=== PATIENT | male | born 1955 | race Caucasian/White ===

== ENCOUNTER 2016-12-01 11:14 | Inpatient (IN) | payer OTHER ==
[2016-11-15 12:54] VITALS: BMI 29.0
--- NOTE | 2016-11-15 13:32 | PAT Medication Instructions ---
Service Date Nov 15, 2016. Current Home Medication List Bupropion (Wellbutrin Sr), 150 MG PO BID Cetirizine (Zyrtec), 10 MG PO QAM Hydroxyzine Pamoate (Vistaril), 1 CAP PO TID Lorazepam (Ativan), 1 MG PO HS Lorazepam (Lorazepam), 1 MG PO Q6H PRN for Anxiety Sertraline (Zoloft), 1 TAB PO QAM Trazodone Hcl (Trazodone), 50 MG PO HS Medication Instructions For Your Scheduled Surgery - Hold the following medications the morning of surgery: Hydroxyzine Pamoate (Vistaril), 1 CAP PO TID Cetirizine (Zyrtec), 10 MG PO QAM - Take the following medications the morning of surgery with a sip of water OTHERWISE NOTHING TO EAT OR DRINK AFTER MIDNIGHT: Sertraline (Zoloft), 1 TAB PO QAM Bupropion (Wellbutrin Sr), 150 MG PO BID Lorazepam (Lorazepam), 1 MG PO Q6H PRN for Anxiety - Take the following medications as scheduled the night before surgery: Lorazepam (Ativan), 1 MG PO HS Trazodone Hcl (Trazodone), 50 MG PO HS Bupropion (Wellbutrin Sr), 150 MG PO BID Lorazepam (Lorazepam), 1 MG PO Q6H PRN for Anxiety Hydroxyzine Pamoate (Vistaril), 1 CAP PO TID If you have any questions please call us at [phone] or [phone] or [phone]
[2016-11-15 13:59] LABS: HEMATOCRIT 45.7 % (42-52); MEAN CELL VOLUME 87.7 fL (80-100); MEAN CORPUSCULAR HEMOGLOBIN 29.2 pg (25-34); MEAN CORPUSCULAR HGB CONC 33.3 g/dl (32-36); MEAN PLATELET VOLUME 10.7 fL (7.4-10.4); PLATELET COUNT 318 K/uL (130-400); RED BLOOD COUNT 5.21 M/uL (4.7-6.1); WHITE BLOOD COUNT 11.05 K/uL (4.8-10.8)
--- NOTE | 2016-11-15 14:04 | DIAGNOSTIC IMAGING REPORT ---
CHEST 2 VIEWS ROUTINE HISTORY: Preop. COMPARISON: Chest 06/12/2015. FINDINGS: No focal lung consolidations to suggest pneumonia. No evidence for pulmonary edema. 4 mm nodular density within the right lung apex favors a calcified granuloma. This remains unchanged. The heart is normal in size. No pleural effusions. No pneumothorax. IMPRESSION: No acute process. Electronically signed by: Modesto Kolb M.D. 11/15/2016 2:03 PM Dictated Date/Time: 11/15/2016 2:01 PM
[2016-11-15 14:16] LABS: BUN/CREATININE RATIO 14.8 (10-20); CALCIUM 8.9 mg/dl (8.5-10.1); CREATININE 0.98 mg/dl (0.60-1.40); POTASSIUM 4.1 mmol/L (3.5-5.1)
[2016-11-15 15:07] LABS: BASO % 0.5 %; BASO ABS # 0.05 K/uL (0-0.2); COMPLETE YES; EOS % 4.6 %; LYMPH ABS # 2.65 K/uL (1.2-3.4); MONO % 9.5 %; NEUT % 60.4 %
[~2016-12-01] VITALS: Ht 172.7 cm; Wt 87.9 kg
[2016-12-01] VITALS (7 sets, daily range): BP systolic 94–139; BP diastolic 59–83; PULSE 69–103; TEMP 36.6–36.9; O2SAT 92–97; Ht 172.7 cm; Wt 87.9 kg
[~2016-12-01 11:14] MED LIST: ATV1 PO; BUPR-79 PO; CEFAZOLIN 2000 MG/60 ML D5W IV SCH; CETI10TA84 PO; HYDR50CA2 PO; LACTATED RINGER'S 1000ML 1,000 ML IV SCH; LORA-741 PO; SERT50TA PO; TRAZ50TA35 PO
[2016-12-01] MEDS ORDERED: EpHEDrine SULFATE INJ 50 MG/ML AMP IV PRN (11:30)
[2016-12-01] MEDS ORDERED: HYDROmorphone INJ 1 MG/ML SYR IV PRN (11:30)
[2016-12-01] MEDS ORDERED: LABETALOL HCL IV 5 MG/ML 20ML IV PRN (11:30)
[2016-12-01] MEDS ORDERED: MEPERIDINE HCL 25 MG/ML CARP IV PRN (11:30)
[2016-12-01] MEDS ORDERED: FENTANYL CITRATE INJ 50 MCG/1 ML 2 ML VIAL IV PRN (11:30)
[2016-12-01] MEDS ORDERED: ONDANSETRON INJ 2 MG/ML 2 ML VIAL IV PRN ×2 (11:30→16:30)
[2016-12-01] MEDS ORDERED: ATROPINE SULFATE 0.1 MG/ML 5ML SYR IV PRN (11:30)
[2016-12-01] MEDS ORDERED: GLYCOPYRROLATE INJ 0.2 MG/ML VIAL ONE ×2 (11:37→14:21)
[2016-12-01] MEDS ORDERED: LIDOCAINE HCL 2% 2 ML VIAL (20MG/ML) ONE (11:37)
[2016-12-01] MEDS ORDERED: ROCURONIUM BROMIDE 10 MG/ML 5 ML VIAL IV ONE (11:37)
[2016-12-01] MEDS ORDERED: ONDANSETRON INJ 2 MG/ML 2 ML VIAL ONE (11:37)
[2016-12-01] MEDS ORDERED: DEXAMETHASONE SOD INJ 4 MG/ML VIAL ONE (11:37)
[2016-12-01] MEDS ORDERED: FENTANYL CITRATE INJ 50 MCG/1 ML 2 ML VIAL ONE ×2 (11:37→16:00)
[2016-12-01] MEDS ORDERED: PROPOFOL IV EMULSION 10 MG/ML 20 ML VIAL IV ONE (11:37)
[2016-12-01] MEDS ORDERED: MIDAZOLAM HCL 1 MG/ML 2ML VIAL ONE (11:37)
[2016-12-01] MEDS ORDERED: NEOSTIGMINE METHYLSULFATE 1 MG/ML 10ML VIAL ONE (11:37)
[2016-12-01] MEDS ORDERED: EpHEDrine SULFATE 50MG/5ML SYR ONE ×2 (11:48→14:00)
--- NOTE | 2016-12-01 13:01 | History & Physical Bridge Note ---
H&P Re-Evaluation Bridge Note: I have examined the patient, reviewed the History & Physical and in the interval since the performance of the History & Physical I have noted the following changes of clinical significance: No changes noted
--- NOTE | 2016-12-01 13:02 | History and Physical ---
History & Physical Date Dec 01, 2016. Chief Complaint Back and leg pain History of Present Illness The patient is a 61 year old male with complaints of back and leg pain Past Medical/Surgical History Medical Problems: (1) Lumbar stenosis with neurogenic claudication Additional History Hepatic Disease: No Endocrine Disorder: No Kidney Disease: No Hypertension: No Heart Disease: No Bleeding Tendencies: No Infectious Diseases: No Allergies Coded Allergies: Gabapentin (Verified Allergy, Unknown, rash, 12/01/16) Latex1 -Allergic Contact Dermititis (Verified Allergy, Unknown, , ) Paroxetine (Unverified Allergy, Unknown, RASH, 12/01/16) PER RECORDS Home Medications Scheduled Bupropion (Wellbutrin Sr), 150 MG PO BID Cetirizine (Zyrtec), 10 MG PO QAM Hydroxyzine Pamoate (Vistaril), 1 CAP PO TID Sertraline (Zoloft), 1 TAB PO QAM Trazodone Hcl (Trazodone), 50 MG PO HS Scheduled PRN Lorazepam (Ativan), 1 MG PO HS PRN for Sleep Lorazepam (Lorazepam), 1 MG PO Q6H PRN for Anxiety Physical Examination Skin: warm/dry, no rash Eyes: normal inspection, EOMI, sclerae normal ENT: normal ENT inspection, pharynx normal Head: normocephalic, atraumatic Neck: supple, no adenopathy, trachea midline Respiratory/Chest: lungs clear, normal breath sounds, no respiratory distress Cardiovascular: regular rate, rhythm, no edema, no murmur Abdomen / GI: normal bowel sounds, non tender Back: normal inspection Extremities: normal inspection, normal range of motion Neurologic/Psych: no motor/sensory deficits, alert, normal reflexes, oriented x 3 Diagnosis Lumbar spinal stenosis Plan of Treatment Lumbar decompression fusion L3 4 L5-S1 with removal of instrumentation L4 5
[2016-12-01] MEDS ORDERED: BUPIVACAINE/EPINEPHRINE 0.5% MPF 1:200,000 30 ML VIAL ONE (13:25)
[2016-12-01] MEDS ORDERED: BACITRACIN 50000 UNIT VIAL ONE (13:25)
[2016-12-01] MEDS ORDERED: PHENYLEPHRINE 100MCG/ML 5ML SYR ONE (14:00)
[2016-12-01] MEDS ORDERED: ALBUMIN HUMAN 5% 12.5 GM/250 ML VIAL IV ONE (15:23)
[2016-12-01] MEDS ORDERED: FLOSEAL HEMOSTATIC MATRIX 10ML TOP ONE (16:10)
--- NOTE | 2016-12-01 16:15 | DIAGNOSTIC IMAGING REPORT ---
INTRAOPERATIVE RADIOGRAPHS CLINICAL HISTORY: L3-S1 spinal fusion. Fluoroscopy time: 13 seconds. FINDINGS: 2 spot fluoroscopic views of the lumbar spine are presented. There is evidence of discectomy at L3-L4, L4-L5, and L5-S1. There has been laminectomy and posterior fusion from L3 -S1. Interpedicular screws are present at all levels. Orthopedic hardware appears intact. IMPRESSION: Intraoperative images from L3 -S1 spinal fusion as above. Electronically signed by: Salvador Gómez M.D. 12/01/2016 4:14 PM Dictated Date/Time: 12/01/2016 4:13 PM
[2016-12-01] MEDS ORDERED: SODIUM CHLORIDE 0.9% 1000ML 1,000 ML IV SCH (16:19)
--- NOTE | 2016-12-01 16:26 | [facility] Operative Report ---
Operative Report Operative Date Dec 01, 2016. Pre-Operative Diagnosis Lumbar spinal stenosis Post-Operative Diagnosis Lumbar spinal stenosis Procedure(s) Performed Her 1 removal of posterior instrumentation L4 5. #2 expiration of fusion L4 5. #3 lumbar decompression medial facetectomies foraminotomies L3 4 L5-S1. #4 posterior spinal fusion L3 4 L5-S1. #5 placement posterior segmental instrumentation L3 to S1. #6 interbody fusion L3 4 L5-S1 #7 placement peek Cage 14 x 26 mm L34 and 12 x 26 mm at L5-S1. #8 placement of locally harvested morcellized autograft and posterior gutters. #9 placement infuse collagen sponge combined Master graft locally harvested morcellized autograft in the posterior lateral gutters and ostial amp in the interbody space. Surgeon Dr. Chente Diamond Locker Room Attendant Surgeon(s) None Estimated Blood Loss 450 ML Findings Severe spinal stenosis Specimens Explanted Hardware L4-L5 Patient desires to keep explanted hardware. Appropriate form filled out and stayed with explants. Explants cleaned and sterilized in OR per policy. Dr. Diamond specified that the explanted hardware was not related to a failed device. Description of Procedure Patient was met with preoperatively case discussed all questions were addressed. After informed consent obtained patient was taken to the operative suite underwent intubation placed in a prone position on the Melo table on top Gregorio frame. All bony prominences well-padded eyes inspected to ensure there is no external pressure placed upon them. This point lumbar spines prepped and draped in the normal sterile fashion. Sharp dissection with the assistance of Bovie cautery was performed onto an exposing the lamina and transverse processes of L3 and L5 in the instrumentation at L5 4 5. Then proceeded remove the hardware at L4 5 bilaterally explored the fusion mass noting it to be intact. Then performed a complete laminectomy including medial facetectomies foraminotomies L5-S1 followed by L3 4. After dressing stenosis pedicle screws were placed in L3 L4-L5 and the S1 levels bilaterally with assistance of fluoroscopy and the probably size vahe placed. Through a transforaminal approach on the left we discectomy of L5-S1 was performed and plate created to subcortical bleeding bone and a 12 x 26 mm peek cage filled with ostial amp tapped in position. Then proceeded L3 40 again through a transforaminal approach on the left we discectomy performed and plate created to subcortical bleeding bone and a 14 x 26 mm peek cage filled with ostial amp tapped into position. Brought to then locked and final position bilaterally. The transverse processes of L3 L4-L5 and sacral alar burred to subcortical bleeding bone. Infuse calm sponge mask graft locally harvested morcellized R graft was placed in the posterior lateral gutters. 15 round JESSICA drain inserted. Incision was then closed with 1 Vicryl in the fascia 2-0 Vicryl subcutaneous tediously 4 Monocryl for Elisabeth closure Steri-Strips sterile dressings placed. Patient we can take PACU stable condition. I attest to the content of the Intraoperative Record and any orders documented therein. Any exceptions are noted below.
[2016-12-01] MEDS ORDERED: DO NOT ADMINISTER PNEUMOCOCCAL VACCINE PRN ×2 (16:30)
[2016-12-01] MEDS ORDERED: DO NOT ADMINISTER FLU VACCINE PRN ×3 (16:30)
[2016-12-01] MEDS ORDERED: METOCLOPRAMIDE HCL INJ 5 MG/ML 2 ML VIAL IV PRN (16:30)
[2016-12-01] MEDS ORDERED: LORAZEPAM INJ 0.5 MG in SYRINGE 0.75 ML IV PRN (16:30)
[2016-12-01] MEDS ORDERED: NALOXONE HCL 0.4 MG/1 ML VIAL/CARP IV PRN ×2 (16:30)
[2016-12-01] MEDS ORDERED: SOD PHOSPHATE/SOD BIPHOSPHATE ENEMA 132 ML BTL PR PRN (16:30)
[2016-12-01] MEDS ORDERED: FAMOTIDINE 20 MG TAB PO PRN (16:30)
[2016-12-01] MEDS ORDERED: ACETAMINOPHEN IV 100 ML IV PRN (16:30)
[2016-12-01] MEDS ORDERED: MAGNESIUM HYDROXIDE SUSP 30 ML UDC PO PRN (16:30)
[2016-12-01] MEDS ORDERED: ACETAMINOPHEN 500 MG TAB PO PRN (16:30)
[2016-12-01] MEDS ORDERED: PROMETHAZINE HCL INJ 12.5 MG in SODIUM CHLORIDE 0.9% 50ML 50 ML IV PRN (16:30)
[2016-12-01] MEDS ORDERED: ALUMINUM/MAGNESIUM SUSP 30 ML UDC PO PRN (16:30)
[2016-12-01] MEDS ORDERED: hydrOXYzine HCL 25 MG TAB PO PRN (16:30)
[2016-12-01] MEDS ORDERED: BISACODYL 10 MG SUPP PR PRN (16:30)
[2016-12-01] MEDS ORDERED: HYDROmorphone HCL 0.5MG/ML 50 ML CASSETTE ONE (16:33)
--- NOTE | 2016-12-01 17:30 | Anesthesiology Progress Note ---
Anesthesia Post Op Note Date & Time Dec 01, 2016 at 17:29 Vital Signs Pain Intensity: 0 Vital Signs Past 12 Hours Date Time Temp Pulse Resp B/P (MAP) Pulse Ox O2 Delivery O2 Flow Rate FiO2 12/01/16 17:05 93 16 109/60 95 Nasal Cannula 4 12/01/16 16:55 93 16 115/64 97 Nasal Cannula 4 12/01/16 16:45 99 16 116/59 97 Oxymask 10 12/01/16 16:36 99 16 109/66 97 Oxymask 10 12/01/16 16:28 36.6 104 18 111/80 97 Oxymask 10 12/01/16 11:40 36.8 84 18 139/83 97 Room Air Notes Mental Status: alert / awake / arousable, participated in evaluation Pt Amnestic to Procedure: Yes Nausea / Vomiting: adequately controlled Pain: adequately controlled Airway Patency, RR, SpO2: stable & adequate BP & HR: stable & adequate Hydration State: stable & adequate Anesthetic Complications: no major complications apparent
[2016-12-01] MEDS: HYDROmorphone HCL 0.5MG/ML 50 ML CASSETTE IV PRN ×2 (17:34→19:12)
[2016-12-01] MEDS: LACTATED RINGER'S 1000ML 1,000 ML IV SCH (18:21)
[2016-12-01] MEDS: TRAZODONE HCL 50 MG TAB PO SCH (21:00)
[2016-12-01] MEDS: CEFAZOLIN IV 2,000 MG in SYRINGE 0 ML IV SCH (21:45)
[2016-12-01] MEDS: DEXAMETHASONE INJ 6 MG in SYRINGE 0 ML IV SCH (21:47)
[2016-12-01] MEDS: DOCUSATE SODIUM/SENNA 50/8.6MG TAB PO SCH (21:49)
[2016-12-01] MEDS: hydrOXYzine HCL 25 MG TAB PO SCH (21:49)
[2016-12-01] MEDS: BuPROPion SR 150 MG TABCR PO SCH (21:49)
[2016-12-02] MEDS: LACTATED RINGER'S 1000ML 1,000 ML IV SCH (00:25)
[2016-12-02 03:34] VITALS: BP 116/74; PULSE 73; TEMP 36.9; O2SAT 92
[2016-12-02 05:41] LABS: HEMATOCRIT 34.6 % (42-52); MEAN CELL VOLUME 86.1 fL (80-100); MEAN CORPUSCULAR HEMOGLOBIN 28.6 pg (25-34); MEAN CORPUSCULAR HGB CONC 33.2 g/dl (32-36); MEAN PLATELET VOLUME 9.8 fL (7.4-10.4); PLATELET COUNT 249 K/uL (130-400); RED BLOOD COUNT 4.02 M/uL (4.7-6.1); WHITE BLOOD COUNT 15.18 K/uL (4.8-10.8)
[2016-12-02] MEDS ORDERED: DC PCA ONE (06:00)
[2016-12-02] MEDS ORDERED: HYDROmorphone INJ 0.5 MG/0.5 ML SYR IV PRN (06:01)
[2016-12-02] MEDS ORDERED: HYDROmorphone INJ 1 MG/ML SYR IV PRN ×2 (06:01)
[2016-12-02] MEDS: CEFAZOLIN IV 2,000 MG in SYRINGE 0 ML IV SCH (06:13)
[2016-12-02] MEDS: DEXAMETHASONE INJ 6 MG in SYRINGE 0 ML IV SCH ×2 (06:13→14:00)
[2016-12-02 06:14] LABS: BUN/CREATININE RATIO 14.5 (10-20); CALCIUM 7.8 mg/dl (8.5-10.1); CREATININE 1.28 mg/dl (0.60-1.40); POTASSIUM 4.4 mmol/L (3.5-5.1)
[2016-12-02 06:21] LABS: BASO % 0.1 %; BASO ABS # 0.01 K/uL (0-0.2); COMPLETE YES; IG% 0.6 %; LYMPH % 5.9 %; LYMPH ABS # 0.89 K/uL (1.2-3.4); MONO % 4.9 %; NEUT % 88.5 %
[2016-12-02] MEDS ORDERED: NURSING DECISION MEDICATION ORDER SCH (06:45)
[2016-12-02 07:34] VITALS: BP 95/61; PULSE 82; TEMP 36.8; O2SAT 92
[2016-12-02] MEDS ORDERED: RXC5 PO (07:50)
--- NOTE | 2016-12-02 07:51 | Discharge Instructions ---
Discharge Instructions Date of Service Dec 02, 2016. Admission Reason for Admission: Spinal Stenosis Discharge Discharge Diagnosis / Problem: lumbar stenosis Discharge Goals Goal(s): Improve function Activity Recommendations Activity Limitations: per Instructions/Follow-up section . Instructions / Follow-Up Instructions / Follow-Up ACTIVITY RECOMMENDATIONS: SELF CARE INSTRUCTIONS AFTER THORACIC/LUMBAR FUSIONS 1. You may walk to your tolerance. It is good exercise for your legs and back. Expect some back and intermittent leg aches and pains. 2. You may perform "counter-top" level activities (make a sandwich, afua with a project, etc.). 3. No bending or lifting of more than 10 pounds or back twisting of any nature (roll like a log when turning in bed). 4. You may ride in a car for 20-30 minutes at a time. No driving until after your first visit with your doctor. 5. Frequent changes of position and restricting sitting to 30 minutes at a time will help limit the amount of back spasms and stiffness you may experience. 6. You may discontinue the use of ambulatory aids (cane, crutches, etc.) once your strength and confidence allow. 7. You may bench inspector the shower and let water strike your incision when you arrive home at least once daily. Do not take a tub bath, sit in a hot tub or go into a swimming pool until after your first recheck in the office. SPECIAL CARE INSTRUCTIONS: VERY IMPORTANT TO READ AND REVIEW A. Your surgical incision has been closed with a cosmetic suture under the skin that will dissolve in about 6 weeks. In 14 days, you can use a pair of clean scissors and cut the suture that is left outside of the skin at the ends of your incision. 1. The small skin tapes can be removed 7 days after surgery if they have not fallen off by that point. 2. You may keep the wound open to air as much as possible to promote healing after post-op day number 5 unless told otherwise by your doctor. 3. If you think the wound looks like it is becoming infected (redness or worsening drainage) and/or you are experiencing fever, chill or worsening back pain and muscle spasms, contact the office so that we may evaluate you as soon as possible. B. Complications are uncommon, but please contact us if you have any signs or symptoms of: 1. wound infection (fever higher than 102.5 degrees F, redness, separation of wound, drainage, or increasing pain from the incision) 2. blood clots in legs (pain, swelling, redness and warmth in legs) 3. urinary tract infection (fever higher than 102.5 degrees F, burning upon urination or increased frequency of urination) 4. nerve problems (inability to walk on your toes or heels, numbness, loss of bowel or bladder control) 5. any other symptoms that concern you C. Please call the office at if you have any concerns or questions about your operation or recovery. D. No smoking! Smoking drastically decreases the chance of a solid fusion. E. Do not take any anti-inflammatory medications (Indocin, Advil, Motrin, Aspirin, Naprosyn, etc.) as these may inhibit the chance of a solid fusion. Tylenol is okay to take for pain. MANAGING PAIN AFTER SPINAL SURGERY 1. Narcotic medication is intended for short-term use and will be provided for surgical pain. Surgical pain usually lasts for a period of 4-6 weeks. Narcotic medication includes Percocet, Vicodin, Darvocet, Tylenol #3 or Lortab. 2. Longer-term pain is more appropriately treated with non-narcotic medication such as Tylenol ES. 3. Muscle spasm is not appropriately treated with narcotics. Muscle relaxers such as Soma, Flexeril or Skelaxin can be used along with Tylenol ES. 4. Remember that we all live with some "aches and pains". This is not unusual or uncommon after an injury or as we get older. a. Back pain is expected and may include muscle spasms for 4 to 6 weeks after surgery. The pain should gradually improve. If the pain worsens for no apparent reason, please contact the office. b. Intermittent leg pain may also be experienced and should not be concerned about unless it worsens for no apparent reason. If so, please contact the office. 5. We will provide appropriate medication within the normal guidelines of their prescribed use. We will also be very cautious and aware of potential abuse and extended duration of patients' medication needs. a. Pain medications are for your comfort and to assist with sleep and rest so that the tissue can heal. They are not provided in order to return to normal activity and should not be used through the day. To do so or worsening pain at night can result from ongoing tissue damage and development of tolerance to the prescribed medicine. 6. Please allow 2-3 days to process refills. Prescriptions will not be mailed but must be picked up at the office. FOLLOW UP VISIT: Keep your scheduled follow-up appointment. Any questions, please call the office at . Current Hospital Diet Patient's current hospital diet: Regular Diet Discharge Diet Recommended Diet: Regular Diet Procedures Procedures Performed: Her 1 removal of posterior instrumentation L4 5. #2 expiration of fusion L4 5. #3 lumbar decompression medial facetectomies foraminotomies L3 4 L5-S1. #4 posterior spinal fusion L3 4 L5-S1. #5 placement posterior segmental instrumentation L3 to S1. #6 interbody fusion L3 4 L5-S1 #7 placement peek Cage 14 x 26 mm L34 and 12 x 26 mm at L5-S1. #8 placement of locally harvested morcellized autograft and posterior gutters. #9 placement infuse collagen sponge combined Master graft locally harvested morcellized autograft in the posterior lateral gutters and ostial amp in the interbody space. Pending Studies Studies pending at discharge: no Medical Emergencies . Who to Call and When: Medical Emergencies: If at any time you feel your situation is an emergency, please call 911 immediately. . Non-Emergent Contact Non-Emergency issues call your: Primary Care Provider . "Provider Documentation" section prepared by Chente Diamond. . VTE Core Measure Inpt VTE Proph given/why not?: Vianney Ceballos, [facility]
[2016-12-02] MEDS: OXYCODONE HCL IR 5 MG TAB (IMMEDIATE RELEASE) PO PRN ×4 (08:11→20:28)
[2016-12-02] MEDS: BuPROPion SR 150 MG TABCR PO SCH ×2 (08:12→21:46)
[2016-12-02] MEDS: hydrOXYzine HCL 25 MG TAB PO SCH ×3 (08:12→21:45)
[2016-12-02] MEDS: CETIRIZINE HCL 10 MG TAB PO SCH (08:12)
[2016-12-02] MEDS: SERTRALINE HCL 50 MG TAB PO SCH (08:12)
[2016-12-02 11:15] VITALS: BP 105/79; PULSE 79; TEMP 36.9; O2SAT 98
[2016-12-02 11:17] VITALS: BP 100/70
--- NOTE | 2016-12-02 12:25 | Progress Note ---
Progress Note Date of Service Dec 02, 2016. Progress Note Back pain is controlled leg pain improved. Vital signs stable. JESSICA drain decreasing appropriate. On exam is good strength testing appears comfortable. Assessment status post multilevel lumbar decompression fusion replant this time will continue physical therapy advance his bowel regimen anticipate home the next day or so with home health.
--- NOTE | 2016-12-02 12:51 | Anesthesiology Progress Note ---
Anesthesia Post Op Note Date & Time Dec 02, 2016 at 12:51 Vital Signs Pain Intensity: 6.0 Vital Signs Past 12 Hours Date Time Temp Pulse Resp B/P (MAP) Pulse Ox O2 Delivery O2 Flow Rate FiO2 12/02/16 11:15 36.9 79 20 105/79 (88) 98 Room Air 12/02/16 08:00 Room Air 12/02/16 07:34 36.8 82 17 95/61 (72) 92 Room Air 12/02/16 03:34 36.9 73 16 116/74 (88) 92 Room Air Notes Mental Status: alert / awake / arousable, participated in evaluation Pt Amnestic to Procedure: Yes Nausea / Vomiting: adequately controlled Pain: adequately controlled Airway Patency, RR, SpO2: stable & adequate BP & HR: stable & adequate Hydration State: stable & adequate Anesthetic Complications: no major complications apparent
[2016-12-02 15:40] VITALS: BP 118/71; PULSE 86; TEMP 36.9; O2SAT 94
[2016-12-02] MEDS: LORAZEPAM 0.5 MG TAB PO PRN (21:43)
[2016-12-02] MEDS: TRAZODONE HCL 50 MG TAB PO SCH (21:44)
[2016-12-02] MEDS: DOCUSATE SODIUM/SENNA 50/8.6MG TAB PO SCH (21:44)
[2016-12-03 00:19] VITALS: BP 96/59; PULSE 80; TEMP 36.7; O2SAT 93
[2016-12-03] MEDS: LORAZEPAM 0.5 MG TAB PO PRN (00:46)
[2016-12-03] MEDS: OXYCODONE HCL IR 5 MG TAB (IMMEDIATE RELEASE) PO PRN ×3 (00:47→08:48)
[2016-12-03] MEDS ORDERED: POLYETHYLENE (MIRALAX) 17 GM PACK PO SCH (06:00)
[2016-12-03 07:23] VITALS: BP 115/68; PULSE 70; TEMP 36.5; O2SAT 95
[2016-12-03] MEDS: hydrOXYzine HCL 25 MG TAB PO SCH (08:46)
[2016-12-03] MEDS: BuPROPion SR 150 MG TABCR PO SCH (08:47)
[2016-12-03] MEDS: CETIRIZINE HCL 10 MG TAB PO SCH (08:47)
[2016-12-03] MEDS: SERTRALINE HCL 50 MG TAB PO SCH (08:47)
[2016-12-03 10:36] VITALS: BP 115/68; PULSE 70; TEMP 36.5; O2SAT 95
--- NOTE | 2016-12-03 12:27 | Discharge Summary ---
Orthopedic Discharge Summary Admission Date/Reason Dec 01, 2016 at 16:22 Spinal Stenosis. Discharge Date/Disposition Dec 03, 2016 Home Diagnosis Principal Diagnosis: Lumbar spinal stenosis Admission Physical Exam As per Admitting History & Physical. Hospital Course Patient underwent lumbar decompression fusion tolerated this well as taken to the orthopedic floor postoperatively. Postoperative day #1 is up and amatory progressed to postoperative day #2 pain was well-controlled. Substernally discharge home with home health. Discharge orders and instructions found the chart for further review. Discharge Instructions Please refer to the electronic Patient Visit Report (Discharge Instructions) for additional information.
== END 2016-12-03 11:13 | disposition home health service (06) | DRG 455 ==
LOC: C.ACU 11:14 → C.MSN 16:22 → ENRESERV 16:59
PROVIDERS: ADMIT Orthopaedic Surgery Orthopaedic Surgery of the Spine; ATTEND Orthopaedic Surgery Orthopaedic Surgery of the Spine
PROC: 0QP004Z Removal of Internal Fixation Device from Lumbar Vertebra, Open Approach (ICD-10-PCS; principal; 2016-12-01 13:15)
PROC: 0SG10AJ Fusion of 2 or more Lumbar Vertebral Joints with Interbody Fusion Device, Posterior Approach, Anterior Column, Open Approach (ICD-10-PCS; principal; 2016-12-01 13:15)
PROC: 0SG3071 Fusion of Lumbosacral Joint with Autologous Tissue Substitute, Posterior Approach, Posterior Column, Open Approach (ICD-10-PCS; principal; 2016-12-01 13:15)
PROC: 0SG1071 Fusion of 2 or more Lumbar Vertebral Joints with Autologous Tissue Substitute, Posterior Approach, Posterior Column, Open Approach (ICD-10-PCS; principal; 2016-12-01 13:15)
PROC: 0ST40ZZ Resection of Lumbosacral Disc, Open Approach (ICD-10-PCS; principal; 2016-12-01 13:15)
PROC: 0ST20ZZ Resection of Lumbar Vertebral Disc, Open Approach (ICD-10-PCS; principal; 2016-12-01 13:15)
PROC: 0SG30AJ Fusion of Lumbosacral Joint with Interbody Fusion Device, Posterior Approach, Anterior Column, Open Approach (ICD-10-PCS; principal; 2016-12-01 13:15)
DX: M48.062 Spinal stenosis, lumbar region with neurogenic claudication (principal); Z91.040 Latex allergy status

== ENCOUNTER 2024-04-16 06:57 | Inpatient (IN) ==
--- NOTE | 2024-03-26 15:49 | PAT Medication Instructions ---
Medication Instructions Date of Service March 26, 2024 Home Medications albuterol sulfate 90 mcg/actuation aerosol inhaler 2 puff inhalation Q6H PRN Wheezing bupropion HCl 150 mg tablet,12 hr sustained-release 150 mg PO BID fluticasone fur. 100 mcg-umeclid 62.5 mcg-vilant 25 mcg inhalat.powder (Trelegy Ellipta) 1 inh inhalation QAM hydroxyzine HCl 50 mg tablet 50 mg PO BID lorazepam 0.5 mg tablet (Ativan) 0.5 mg PO HS PRN Sleep sertraline 100 mg tablet 125 mg PO QAM DO NOT take the morning of surgery hydroxyzine HCl 50 mg tablet 50 mg PO BID Take morning of surgery With a small sip of water, OTHERWISE NOTHING TO EAT OR DRINK AFTER MIDNIGHT: albuterol sulfate 90 mcg/actuation aerosol inhaler 2 puff inhalation Q6H PRN Wheezing (use if needed; please bring rescue inhaler with you to hospital day of surgery if possible) bupropion HCl 150 mg tablet,12 hr sustained-release 150 mg PO BID fluticasone fur. 100 mcg-umeclid 62.5 mcg-vilant 25 mcg inhalat.powder (Trelegy Ellipta) 1 inh inhalation QAM sertraline 100 mg tablet 125 mg PO QAM Take evening before surgery albuterol sulfate 90 mcg/actuation aerosol inhaler 2 puff inhalation Q6H PRN Wheezing (if needed) bupropion HCl 150 mg tablet,12 hr sustained-release 150 mg PO BID hydroxyzine HCl 50 mg tablet 50 mg PO BID lorazepam 0.5 mg tablet (Ativan) 0.5 mg PO HS PRN Sleep (if needed) Other Notes If you have any questions please call us at [phone] or [phone] or [phone] or [phone]
--- NOTE | 2024-03-27 11:18 | Anesthesiology Consultation ---
Date of Service March 27, 2024 Assessment & Plan (1) Encounter for pre-operative examination: - Infectious disease screening: Per assessment on 03/27/24- No known recent infectious disease contacts or current infectious disease symptoms (does report recent URI symptoms that have resolved). Patient advised to contact surgeon/PAT if recurrence in URI symptoms. - Hypokalemia: Potassium low at 3.1 on preop labs. Note written to PCP- Await hypokalemia response + surgeon-ordered PCP preop evaluation (Dr. Cheryl Meier, appt done 03/22). Chart Review Chart Review: Patient seen in Pre Admission Testing Teaching & Discussion Pre-Anesthesia Teaching/Discussion Notes: Instructed NPO after midnight before surgery,except medications with 15 cc of water. Medication instructions provided according to the PAT guidelines. History Surgery Operation Date: 04/16/24 11:55 Proposed Procedures p L2-L3 Decompression and Fusion, Connect to Previous Hardware, Spinal Cord Monitoring - Chente Diamond, DO Height/Weight Height: 5 ft 8 in Weight: 84.8 kg Allergies Allergy/AdvReac Type Severity Reaction Status Date / Time gabapentin Allergy Unknown Rash Verified 03/26/24 15:50 latex Allergy Unknown Itchy Verified 03/26/24 15:50 hands (with gloves) paroxetine Allergy Unknown Rash Unverified 03/26/24 15:50 Medications Home Medications Medication Instructions Recorded Confirmed Last Taken albuterol sulfate 90 mcg/actuation 2 puff inhalation Q6H PRN Wheezing 02/19/21 03/26/24 Unknown aerosol inhaler bupropion HCl 150 mg tablet,12 hr 150 mg PO BID 02/19/21 03/26/24 Unknown sustained-release fluticasone fur. 100 mcg-umeclid 1 inh inhalation QAM 02/19/21 03/26/24 Unknown 62.5 mcg-vilant 25 mcg inhalat.powder (Trelegy Ellipta) hydroxyzine HCl 50 mg tablet 50 mg PO BID 02/19/21 03/26/24 Unknown lorazepam 0.5 mg tablet (Ativan) 0.5 mg PO HS PRN Sleep 02/19/21 03/26/24 Unknown sertraline 100 mg tablet 125 mg PO QAM 02/19/21 03/26/24 Unknown Past Medical History Medical History Anxiety Chronic back pain LBP Chronic obstructive pulmonary disease Dr. Peres- [facility] pulm Depression GERD (gastroesophageal reflux disease) Controlled Hx of intestinal obstruction (09/2023) Hospitalized at [facility] Medically managed (no surgical intervention) Post traumatic stress disorder Exercise / Class Metabolic Activity III < 4 Walking/Shop/Light housework Past Family History Family History Father Family history of diabetes mellitus Past Surgical History Surgical History Fusion of spine x2 Removal L4-5, L5-S1 decompression, L5-S1 fusion (12/01/16): Grade 2 view, MAC#4, ETT 7.5 at [facility] History of surgery Spinal cord stimulator trial in [place] (2020) Past Anesthesia History No Hx of Anesthesia Complications and No Family Hx of Anesthesia Complications History of PONV No Hx of PONV and No Hx of Motion Sickness Social History Smoking Status: Current every day smoker Smoking cigarettes per day: 10 cigs/day, tobacco use x 45 years (intermittent use during this time) Do You Dip or Chew Tobacco: No Hx Alcohol Use: Yes Alcohol type: beer alcohol intake frequency: a few times a month Hx Substance Use: No substance use type: does not use Review of Systems Occasional cough r/t COPD- at baseline. Patient denies chest pain, shortness of breath, fever, chills, cough, wheezing, palpitations. Physical Exam Vital Signs BP 125/74 P 77 TEMP 98.5 SP02 94%RA RESP 20 Physical Full cervical extension range of motion. Full TMJ range of motion. TMD 3 finger breaths Mallampati Score II Dentition: full upper denture, several lower missing teeth (including front) Lungs: clear throughout to auscultation Cardiac: regular rate and rhythm, no murmurs noted Spine: normal Carotid arteries: negative bruit Extremities: no LE edema Lab Results Anesthesia Preop Results Results Anesthesia Widget: WBC 11.42 K/ul (4.8-10.8) H 03/27/24 Hgb 16.3 g/dl (14.0-18.0) 03/27/24 Hct 48.1 % (42.0-52.0) 03/27/24 Plt 307 K/uL (130-400) 03/27/24 Na 139 mmol/L (136-145) 03/27/24 K 3.1 mmol/L (3.5-5.1) L 03/27/24 Cl 104 mmol/L (98-107) 03/27/24 CO2 29 mmol/L (21-32) 03/27/24 BUN 12 mg/dl (6-23) 03/27/24 Creat 0.89 mg/dl (0.6-1.4) 03/27/24 Glucose Level 72 mg/dl (70-99(Fasting)) 03/27/24 PT 10.1 Seconds (9.0-12.0) 03/27/24 PTT 27 Seconds (21-31) 03/27/24 INR 0.9 (0.9-1.1) 03/27/24 Urine Color Yellow 03/27/24 Urine Appearance Clear (Clear) 03/27/24 Urine pH 6.0 (4.5-7.5) 03/27/24 Urine Specific [place] 1.005 (1.000-1.030) 03/27/24 Urine Protein Negative (Negative) 03/27/24 Urine Glucose (UA) Negative (Negative) 03/27/24 Urine Ketones Negative (Negative) 03/27/24 Urine Blood Negative (Negative) 03/27/24 Urine Nitrite Negative (Negative) 03/27/24 Urine Bilirubin Negative (Negative) 03/27/24 Urine Urobilinogen Negative (Negative) 03/27/24 Urine Leukocyte Esterase Negative (Negative) 03/27/24 Blood Type AB Positive 03/27/24 Antibody Screen NEGATIVE 03/27/24 Testing Electrocardiogram Date: 03/27/24 NSR at 75bpm. NS STA. No significant change compared to 02/24/2021 per animal stunner comparison. Chest X-Ray Date: 03/27/24 IMPRESSION: 1. COPD changes. 2. Stable mild cardiomegaly. 3. No consolidation, pneumothorax or pleural effusion. 4. No significant interval changes.
[2024-04-16] MEDS: LACTATED RINGER'S 1,000 ML IV SCH (07:12)
[2024-04-16] MEDS: ACETAMINOPHEN 500 MG TAB PO SCH (07:12)
[2024-04-16] MEDS: LR 60ML/HR IV SCH (07:12)
[2024-04-16] MEDS ORDERED: ROCURONIUM BROMIDE 10 MG/ML 5 ML VIAL IV ONE ×3 (07:23→09:43)
[2024-04-16] MEDS ORDERED: ONDANSETRON INJ 2 MG/ML 2 ML VIAL ONE (07:23)
[2024-04-16] MEDS ORDERED: SUCCINYLCHOLINE 100MG/5ML SYR IV ONE (07:23)
[2024-04-16] MEDS ORDERED: LIDOCAINE 2% 2 ML VIAL/AMP(20MG/ML) INFIL ONE (07:23)
[2024-04-16] MEDS ORDERED: fentaNYL citrate PF 100 MCG/2 ML VIAL ONE (07:23)
[2024-04-16] MEDS ORDERED: DEXAMETHASONE SOD INJ 4 MG/ML VIAL ONE (07:23)
[2024-04-16] MEDS ORDERED: PROPOFOL IV EMULSION 10 MG/ML 20 ML VIAL IV ONE ×2 (07:23→10:19)
[2024-04-16] MEDS ORDERED: KETAMINE HCL 10MG/ML SYR ONE (07:24)
[2024-04-16] MEDS ORDERED: HYDROmorphone INJ 2 MG/ML SYR/VIAL ONE (07:24)
[2024-04-16] MEDS ORDERED: MIDAZOLAM HCL 1 MG/ML 2ML VIAL ONE (07:29)
[2024-04-16] MEDS ORDERED: ONDANSETRON INJ 2 MG/ML 2 ML VIAL IV PRN ×2 (07:38→11:35)
[2024-04-16] MEDS ORDERED: fentaNYL citrate PF 100 MCG/2 ML VIAL IV PRN (07:38)
[2024-04-16] MEDS ORDERED: ALBUT/IPRATROP 3MG/0.5MG NEB 3 ML VIAL INH PRN (07:38)
[2024-04-16] MEDS ORDERED: ATROPINE SULFATE 0.1 MG/ML 10ML SYR IV PRN (07:38)
[2024-04-16] MEDS ORDERED: ePHEDrine sulfate 50 MG/ML AMP IV PRN (07:38)
--- NOTE | 2024-04-16 07:43 | History & Physical Bridge Note ---
Date of Service April 16, 2024 History & Physical Bridge Note I have examined the patient, reviewed the History & Physical and in the interval since the performance of the History & Physical I have noted the following changes of clinical significance: no changes noted
--- NOTE | 2024-04-16 07:44 | History & Physical Report ---
Date of Service April 16, 2024 Assessment & Plan (1) Two-level lumbosacral spondylosis with radiculopathy: Plan: L2-L3 decompression and fusion connector previous hardware History of Present Illness Chief Complaint: Back and leg pain Primary Care Provider: Cheryl Meier DO This is a 68-year-old male presents chronic persistent back and leg pain and failing course of nonoperative care is here for surgical invention. Allergies Allergy/AdvReac Type Severity Reaction Status Date / Time gabapentin Allergy Unknown Rash Verified 04/16/24 06:59 latex Allergy Unknown Itchy Verified 04/16/24 06:59 hands (with gloves) paroxetine Allergy Unknown Rash Verified 04/16/24 06:59 Home Medications Medication Instructions Recorded Confirmed Type albuterol sulfate 90 mcg/actuation 2 puff inhalation Q6H PRN Wheezing 02/19/21 04/16/24 History aerosol inhaler bupropion HCl 150 mg tablet,12 hr 150 mg PO BID 02/19/21 04/16/24 History sustained-release fluticasone fur. 100 mcg-umeclid 1 inh inhalation QAM 02/19/21 04/16/24 History 62.5 mcg-vilant 25 mcg inhalat.powder (Trelegy Ellipta) hydroxyzine HCl 50 mg tablet 50 mg PO BID 02/19/21 04/16/24 History lorazepam 0.5 mg tablet (Ativan) 0.5 mg PO HS PRN Sleep 02/19/21 04/16/24 History sertraline 100 mg tablet 125 mg PO QAM 02/19/21 04/16/24 History Past Med/Surg History Problem List (Updated 04/16/24 @ 07:44 by Chente Diamond DO) Two-level lumbosacral spondylosis with radiculopathy Encounter for pre-operative examination Lumbar stenosis with neurogenic claudication Medical History Anxiety Chronic back pain LBP Chronic obstructive pulmonary disease Dr. Peres- [facility] [place] pulmatthew Depression GERD (gastroesophageal reflux disease) Controlled Hx of intestinal obstruction (09/2023) Hospitalized at [facility] Medically managed (no surgical intervention) Post traumatic stress disorder Surgical History Fusion of spine x2 Removal L4-5, L5-S1 decompression, L5-S1 fusion (12/01/16): Grade 2 view, MAC#4, ETT 7.5 at [facility] History of surgery Spinal cord stimulator trial in [place] (2020) Family History Father Family history of diabetes mellitus Social History Smoking Status: Current every day smoker Tobacco Type: Cigarettes Cigarettes Per Day: 10 cigs/day, tobacco use x 45 years (intermittent use during this time); Second Hand Exposure: Yes (SPOUSE SMOKES/PARENTS SMOKED); Do You Dip or Chew Tobacco: No; Tobacco Cessation Education Requested by Patient: No Hx Alcohol Use: Yes Alcohol type: beer Hx Substance Use: No Preferred Language: Tajik Communication Ability: Effective Granulator Tender Required: No Beliefs That Will Affect Care: None Current Living Situation: Spouse current occupational status: retired Other Information That Helps Us Care for You: No Feels Safe at Home: Yes Safety Concerns: Feels Safe At This Time Assistive Devices: Denture - Upper and Glasses Physical Exam Physical Exam: Patient is alert and oriented heart regular rhythm lungs clear Results & Data Results & Data Vital Signs (Past 12 Hours) Vital Signs Temp Pulse Resp BP Pulse Ox O2 Del Method 04/16/24 07:03 36.6 C 84 20 135/91 97 Room Air 04/16/24 07:03 Room Air
[2024-04-16] MEDS ORDERED: ePHEDrine sulfate 50 MG/ML AMP ONE (08:11)
[2024-04-16] MEDS ORDERED: PHENYLEPHRINE HCL 10 MG/ML VIAL ONE ×2 (08:42→10:50)
[2024-04-16] MEDS: BUPIVACAINE/EPINEPHRINE 0.25% 1:200,000 30 ML VIAL ONE (08:43)
[2024-04-16] MEDS: ceFAZolin 330 MG/ML 1 GM VIAL ONE (08:44)
[2024-04-16] MEDS ORDERED: SUGAMMADEX SODIUM 200 MG/2 ML VIAL IV ONE (09:36)
--- NOTE | 2024-04-16 09:43 | Operative Report ---
Post Operative Report Pre & Post Diagnosis Operation Date: 04/16/24 07:45 Pre-Op Diagnosis: #1 lumbar spondylosis with radiculopathy #2 lumbar spinal stenosis Post-Op Diagnosis: Same I identified the patient and participated in the time-out.: Yes Procedure Operation Date: 04/16/24 07:45 Actual Procedures #1 lumbar decompression with bilateral medial facetectomies and foraminotomies L1-L2 L2-L3. #2 posterior spinal fusion L2-L3. #3 placed posterior instrumentation pedicle screws at L2 and connectors at L3-L4 vahe. #4 interbody fusion L2-L3. #5 placement of Spira 9 x 26 mm at L2-L3. #6 placement locally harvested morselized autograft posterior gutters. #7 placement fuse collagen sponge, with Koros in the posterior lateral gutters and os design interbody space. #8 application of versa wrap of the exposed dura. Surgeon Chente Diamond, Settlement Worker Lizzie De Anda Estimated Blood Loss 100 Findings Consistent with Post-Op Diagnosis Specimens None Indications This is a 68-year-old male presents publish diagnosis of failed course of nonoperative care is here for surgical invention. Description of Procedure Patient is met with identified informed consent obtained. Patient was then taken to the operative suite underwent intubation placed in a prone position on the Melo table atop chest pad and hip bolsters. All bony promises well- padded eyes inspected to ensure no external precipice upon them. This point the lumbar spine is prepped and draped no sterile fashion. Sharp dissection with the assistance of Bovie cautery form down to and exposing the lamina transverse processes of L2 and instrumentation between L3-L4. Then performed a complete laminectomy of L2 including bilateral medial facetectomies and foraminotomies addressing severe spinal stenosis. This included partial laminectomy L1 with bilateral medial facetectomies to address all subarticular stenosis. Pedicle screws were then placed in L2 and connectors attached to the vahe between L3-L4. By way of a transforaminal approach on the right complete discectomy of L2-L3 was performed endplates corrected to subcortical bleeding bone and 9 x 26 mm Spira cage filled with os design bone graft tapped in position. The proper size rods were then placed bilaterally and compressed. The transverse processes of L2-L3 burred to subcortical bleeding bone. Infuse collagen sponge, with Koros and local autograft placed in the posterior lateral gutters. 15 round JESSICA drain inserted. Versa wrap placed over the exposed dura. The incision was then closed with 1 Vicryl the fascia 2-0 Vicryl subcutaneously and 4 Monocryl for final skin closure. Steri-Strips and sterile dressing placed. Patient waken taken to PACU stable condition. Please note spinal cord monitoring was utilized at the procedure no changes noted. Lizzie De Anda was present throughout the entire procedure and found the patient positioning complex portion of the surgery and final skin closure. I attest to the content of the Intraoperative Record and any orders documented therein. Any exceptions are noted below.
--- NOTE | 2024-04-16 09:45 | Fluoroscopy Report ---
FL lumbar spine 2-3V CLINICAL HISTORY: L2-L3 DECOMPRESSION AND FUSION COMPARISON STUDY: None FLUOROSCOPY TIME: 15 FLUOROSCOPY IMAGES: 3 EXPOSURE DOSE: 11 mGy FINDINGS: Fluoroscopy was provided for L2-3 decompression and fusion. IMPRESSION: Intraoperative fluoroscopy. ACT 112: Negative or not required by law. Electronically signed by: Socrates Aguilar M.D. 04/16/2024 9:43 AM
--- NOTE | 2024-04-16 11:04 | Anesthesiology Progress Note ---
Date of Service April 16, 2024 Anesthesia Post Procedure Vital Signs Vital Signs: Temp Pulse Pulse Resp BP Pulse Ox O2 Del Method 04/16/24 10:50 90 12 109/75 96 Room Air 04/16/24 10:40 36.8 C 93 H 16 138/66 94 Room Air 04/16/24 10:30 97 H 19 109/76 94 Room Air 04/16/24 10:20 99 H 16 112/86 97 Oxymask 04/16/24 10:10 36.1 C L 100 H 15 132/54 L 100 Oxymask 04/16/24 07:03 36.6 C 84 20 135/91 97 Room Air 04/16/24 07:03 Room Air O2 Flow Rate 04/16/24 10:50 0 04/16/24 10:40 0 04/16/24 10:30 0 04/16/24 10:20 8 04/16/24 10:10 12 04/16/24 07:03 04/16/24 07:03 Pain Intensity Bilateral Lower Back: Pain Intensity: 8 Transfer of Care Handoff Completed per policy Notes Mental Status: alert / awake / arousable Patient Amnestic to Procedure: Yes Nausea / Vomiting: adequately controlled Pain: adequately controlled Airway Patency, RR, SpO2: stable & adequate BP & HR: stable & adequate Hydration State: stable & adequate Anesthetic Complications: no major complications apparent and Pt Satisfied with anesthetic care
[2024-04-16] MEDS ORDERED: ALUMINUM/MAGNESIUM SUSP 30 ML UDC PO PRN (11:35)
[2024-04-16] MEDS ORDERED: ALBUTEROL HFA 8 GM INHALER INH PRN (11:35)
[2024-04-16] MEDS ORDERED: traMADol HCL 50 MG TABLET PO PRN (11:35)
[2024-04-16] MEDS ORDERED: diphenhydrAMINE Capsule 25 MG CAP PO PRN (11:35)
[2024-04-16] MEDS ORDERED: METOCLOPRAMIDE HCL INJ 5 MG/ML 2 ML VIAL IV PRN (11:35)
[2024-04-16] MEDS ORDERED: NALOXONE HCL 0.4 MG/1 ML VIAL/CARP IV PRN (11:35)
[2024-04-16] MEDS ORDERED: SOD PHOSPHATE/SOD BIPHOSPHATE ENEMA 132 ML BTL PR PRN (11:35)
[2024-04-16] MEDS ORDERED: bisacodyL 10 MG SUPP PR PRN (11:35)
[2024-04-16] MEDS ORDERED: PROMETHAZINE 12.5 MG/50.5 ML BAG IV PRN (11:35)
[2024-04-16] MEDS ORDERED: MAGNESIUM HYDROXIDE SUSP 30 ML UDC PO PRN (11:35)
[2024-04-16] MEDS ORDERED: FAMOTIDINE 20 MG TAB PO PRN (11:35)
[2024-04-16] MEDS ORDERED: ONDANSETRON 4 MG OD TAB PO PRN (11:35)
[2024-04-16] MEDS ORDERED: DO NOT ADMINISTER PNEUMOCOCCAL VACCINE PRN (11:35)
[2024-04-16] MEDS ORDERED: ACETAMINOPHEN 500 MG TAB PO PRN (11:35)
[2024-04-16] MEDS ORDERED: ACETAMINOPHEN 1,000 MG/100 ML VIAL IV PRN (11:35)
[2024-04-16] MEDS ORDERED: DO NOT ADMINISTER FLU VACCINE PRN (11:35)
[2024-04-16] MEDS ORDERED: LORazepam 2 MG/1 ML VIAL IV PRN (11:35)
[2024-04-16] MEDS: FLOSEAL HEMOSTATIC MATRIX 10ML TOP ONE (11:38)
[2024-04-16] MEDS: ceFAZolin 2000MG 2,000 MG/15 ML SYR IV SCH ×2 (11:38→16:55)
[2024-04-16] MEDS: oxyCODONE HCL IR 5 MG TAB (IMMEDIATE RELEASE) PO PRN (12:32)
--- NOTE | 2024-04-16 13:16 | Hospitalist Consultation ---
<Statement entered by Declan Hartmann, - 04/16/24 15:01> I have seen and examined the patient and have discussed the case with the advance practice provider. I have reviewed the advanced practitioner's documentation, and I agree with, and take responsibility for that plan of care. Lungs: Decreased breath sounds, few coarse rhonchi, occasional scattered wheezes Encouraged incentive spirometry Educated patient that he has multiple pain medications available to him, he should check with nurse if he is having any significant panic pain. For the plan of care as outlined below I spent a total of 12 minutes coordinating, documenting, and providing care for this patient excluding time spent by another provider/QHP. Date of Consultation April 16, 2024 Assessment & Plan (1) Two-level lumbosacral spondylosis with radiculopathy: (2) S/P lumbar spine operation: Anastasia Andujar is a 68y/o M with PMHx significant for chronic low back pain, GERD, peptic ulcer disease, hiatal hernia, COPD/emphysema, former tobacco use, PTSD and anxiety whom our service is consulted on for routine postoperative medical management after undergoing elective L2-L3 decompression and fusion connector previous hardware with Dr. Diamond on 04/16/24 for treatment of two-level lumbosacral spondylosis with radiculopathy. POD #0 s/p L2-L3 decompression and fusion connector previous hardware with Dr. Diamond on 04/16/24. EBL: 100mL & Pre-Op Hgb: 11.42 [as of 03/27/24] Per ortho for pain control, wound care, anticoagulation and activities. Continue incentive spirometry, PT/OT when appropriate as per ortho team. Monitor H/H for acute blood loss anemia and transfuse blood products PRN. (3) Anxiety: (4) Post traumatic stress disorder: Chronic, stable. Hold home Ativan for now per primary service. Can continue other home medications including Wellbutrin, Atarax and Zoloft. (5) History of small bowel obstruction: SBO requiring NG tube placement back in October 2023. Was admitted at [facility] in [place], [place] for this. Did not yet have his follow-up colonscopy as advised by general surgery following that admission. Encouraged patient to have this arranged KOJO by his PCP and he endorsed understanding. (6) Chronic obstructive pulmonary disease: Follows with Dr. Austin Peres at [facility]. On 2L NC postoperatively. Not on supplemental O2 at home. Wean O2 as tolerated. Was on Trelegy but stopped taking this back in October 2023 - mentions this decision was discussed with his primary well puller head, however he reports using his albuterol inhaler daily since then. Would benefit from routine follow-up with his outpatient well puller head to discuss maintenance inhaler therapy moving forward given daily rescue inhaler use. DVT Prophylaxis: SCDs/TEDs as per primary service. Code Status: FULL CODE PCP: Cheryl Meier DO Disposition: Admitted in Med/Surg - Discharge planning as per primary service. Thank you for this consultation. We will follow the patient with you during their hospital stay. You can reach a member of the [facility] Hospitalist Team 06/09 via [employer]. Patient seen in collaboration with Dr. Hartmann. Please see addendum. I spent a total of 40 minutes coordinating, documenting, and providing care for this patient excluding time spent in the performance of separately billed services or time spent by another provider/QHP. This included personally reviewing all current laboratories and imaging studies, medical reconciliation, outpatient chart review and discussion with specialists. This chart was completed in part utilizing Speech Voice Recognition Software. Grammatical errors, random word insertions, pronoun errors, and incomplete sentences are an occasional consequence of this system due to software limitatio ns, ambient noise, and hardware issues. Any formal questions or concerns about the content, text, or information contained within the body of this dictation should be directly addressed to the provider for clarification. History of Present Illness Reason for Consultation: Routine Postoperative Medical Management Requesting Physician: Chente Diamond DO Attending Physician: Chente Diamond DO History of Present Illness Anastasia Andujar is a 68y/o M with PMHx significant for chronic low back pain, GERD, peptic ulcer disease, hiatal hernia, COPD/emphysema, former tobacco use, PTSD and anxiety whom our service is consulted on for routine postoperative medical management after undergoing elective L2-L3 decompression and fusion connector previous hardware with Dr. Diamond on 04/16/24 for treatment of two-level lumbosacral spondylosis with radiculopathy. History obtained from the patient and associated chart review. Endorses adequate pain control at this time. Reports this is his 3rd lower back operation. Mentions he was having a significant amount of pain in his lower back region prior to surgery which strongly inhibited him from performing ADLs. On 2L NC at the time of our conversation and saturating well. No home supplemental O2 use. Former smoker. States he is no longer on Trelegy for his COPD/emphysema. Mentions he stopped taking Trelegy back in October 2023. Follows with an outpatient well puller head, Dr. Austin Peres, at [facility]. He does however endorse using his albuterol inhaler almost daily in the AM since stopping Trelegy. Mentions that he discussed stopping Trelegy with his well puller head after he lost 40lbs and felt he no longer needed it. Had a SBO back in October 2023 requiring NG tube placement. States he was admitted at [facility] in [place], [place] for this. No prior history of abdominal surgery per his recollection. No further incidences of SBO since then; mentions that occurrence was his first SBO ever. Allergies Allergy/AdvReac Type Severity Reaction Status Date / Time gabapentin Allergy Unknown Rash Verified 04/16/24 06:59 latex Allergy Unknown Itchy Verified 04/16/24 06:59 hands (with gloves) paroxetine Allergy Unknown Rash Verified 04/16/24 06:59 Home Medications Medication Instructions Recorded Confirmed Type albuterol sulfate 90 mcg/actuation 2 puff inhalation Q6H PRN Wheezing 02/19/21 04/16/24 History aerosol inhaler bupropion HCl 150 mg tablet,12 hr 150 mg PO BID 02/19/21 04/16/24 History sustained-release hydroxyzine HCl 50 mg tablet 50 mg PO BID 02/19/21 04/16/24 History lorazepam 0.5 mg tablet (Ativan) 0.5 mg PO HS PRN Sleep 02/19/21 04/16/24 History sertraline 100 mg tablet 125 mg PO QAM 02/19/21 04/16/24 History oxycodone 5 mg tablet 5 mg PO Q6H PRN pain #30 tabs 04/16/24 Rx tramadol 50 mg tablet 50 mg PO Q6H PRN pain, moderate 04/16/24 Rx #30 tabs Patient History Medical History Hx of intestinal obstruction (09/2023) Hospitalized at [facility] Medically managed (no surgical intervention) Chronic back pain LBP GERD (gastroesophageal reflux disease) Controlled Post traumatic stress disorder Anxiety Depression Chronic obstructive pulmonary disease Dr. Peres- [facility] Surgical History History of surgery Spinal cord stimulator trial in [place] (2020) Fusion of spine x2 Removal L4-5, L5-S1 decompression, L5-S1 fusion (12/01/16): Grade 2 view, MAC#4, ETT 7.5 at [facility] Family History Father Family history of diabetes mellitus Social History Smoking Status: Current every day smoker Tobacco Type: Cigarettes Cigarettes Per Day: 10 cigs/day, tobacco use x 45 years (intermittent use during this time); Second Hand Exposure: Yes (SPOUSE SMOKES/PARENTS SMOKED); Do You Dip or Chew Tobacco: No; Tobacco Cessation Education Requested by Patient: No Hx Alcohol Use: Yes Alcohol type: beer Hx Substance Use: No Preferred Language: Nigerien Communication Ability: Effective Form Grader Operator Required: No Beliefs That Will Affect Care: None Current Living Situation: Spouse current occupational status: retired Other Information That Helps Us Care for You: No Feels Safe at Home: Yes Safety Concerns: Feels Safe At This Time Assistive Devices: Denture - Upper and Glasses Review of Systems Review of Systems: At least ten systems reviewed and negative, except as noted in the HPI. Physical Exam Physical Exam: General: WD/WN, NAD, sitting up in bed, pleasant, conversing appropriately. A+Ox3. Surgical dressing C/D/I. HEENT: Normocephalic, atraumatic. Conjunctivae normal. External ear and nose normal, oropharynx normal. Respiratory: Normal respiratory effort, lung sounds decreased throughout but no wheeze/rales. On 2L NC. Cardiovascular: Regular rate/rhythm, normal peripheral pulses. BLE SCDs and TEDs in place. Abdomen/GI: Normal bowel sounds, soft, nondistended, nontender to palpation in all quadrants. Extremities/Musculoskeletal: Able to actively move all extremities. JESSICA drain x 1 intact and draining serosanguineous output. Neurologic: No overt focal deficits, CN's II-XI not formally tested but appear grossly intact bilaterally. Results & Data Results & Data Vital Signs (Past 12 Hours) Vital Signs Temp Pulse Pulse Pulse Resp BP Pulse Ox 04/16/24 13:05 36.7 C 81 18 102/65 92 04/16/24 12:05 36.8 C 85 16 105/65 93 04/16/24 11:30 37.0 C 89 16 110/68 92 04/16/24 11:00 04/16/24 11:00 37.0 C 86 16 109/68 93 04/16/24 10:50 90 12 109/75 96 04/16/24 10:40 36.8 C 93 H 16 138/66 94 04/16/24 10:30 97 H 19 109/76 94 04/16/24 10:20 99 H 16 112/86 97 04/16/24 10:10 36.1 C L 100 H 15 132/54 L 100 04/16/24 07:03 36.6 C 84 20 135/91 97 04/16/24 07:03 O2 Del Method O2 Flow Rate 04/16/24 13:05 Nasal Cannula 2 04/16/24 12:05 Nasal Cannula 3 04/16/24 11:30 Nasal Cannula 2 04/16/24 11:00 Nasal Cannula 2 04/16/24 11:00 Nasal Cannula 2 04/16/24 10:50 Room Air 0 04/16/24 10:40 Room Air 0 04/16/24 10:30 Room Air 0 04/16/24 10:20 Oxymask 8 04/16/24 10:10 Oxymask 12 04/16/24 07:03 Room Air 04/16/24 07:03 Room Air Diagnostic Findings Lumbar Spine X-Ray 04/16/24 09:45 FL lumbar spine 2-3V CLINICAL HISTORY: L2-L3 DECOMPRESSION AND FUSION COMPARISON STUDY: None FLUOROSCOPY TIME: 15 FLUOROSCOPY IMAGES: 3 EXPOSURE DOSE: 11 mGy FINDINGS: Fluoroscopy was provided for L2-3 decompression and fusion. IMPRESSION: Intraoperative fluoroscopy. ACT 112: Negative or not required by law. Electronically signed by: Socrates Aguilar M.D. 04/16/2024 9:43 AM Medications Administered Oxycodone HCl (Oxycodone Hcl Ir 5 Mg Tab (Immediate Release)) 5 - 10 mg PO Q4H PRN PRN Reason: Pain & Pre PT Stop: 04/30/24 11:34 Last Admin: 04/16/24 12:32 Dose: 10 mg Documented By: OSMAR Discontinued Medications Acetaminophen (Acetaminophen 500 Mg Tab) 1,000 mg PO PREOP TATIANNA Stop: 04/16/24 18:00 Last Admin: 04/16/24 07:12 Dose: 1,000 mg Documented By: LO Bupivacaine HCl/Epinephrine Bitart (Bupivacaine/Epinephrine 0.25% 1:200,000 30 Ml Vial) Confirm Administered Dose 30 ml .ROUTE .STK-MED ONE Stop: 04/16/24 07:00 Last Admin: 04/16/24 08:43 Dose: 18 ml Documented By: BLAKE Cefazolin Sodium (Cefazolin 330 Mg/Ml 1 Gm Vial) Confirm Administered Dose 990 mg .ROUTE .STK-MED ONE Stop: 04/16/24 07:00 Last Admin: 04/16/24 08:44 Dose: 990 mg Documented By: BLAKE Lactated Ringer's (Lr) 1,000 mls @ 60 mls/hr IV .[id number] TATIANNA Stop: 04/16/24 22:39 Last Admin: 04/16/24 07:12 Dose: Not Given Documented By: LO Cefazolin Sodium (Ancef 2000mg) 2,000 mg in 15 mls @ 3.75 mls/min IV PREOP TATIANNA; Protocol Stop: 04/16/24 18:00 Last Admin: 04/16/24 11:38 Dose: Not Given Documented By: OSMAR Lactated Ringer's (Lr) 1,000 mls @ 15 mls/hr IV .Q24H TATIANNA Stop: 04/17/24 05:59 Last Infusion: 04/16/24 07:55 Dose: Infused Documented By: Admin: 04/16/24 07:12 Dose: 15 mls/hr Documented By: LO Miscellaneous ( Floseal Hemostatic Matrix 10ml) 13 ml TOP ONCE ONE Stop: 04/16/24 09:32 Last Admin: 04/16/24 11:38 Dose: Not Given Documented By: OSMAR (6) Chronic obstructive pulmonary disease COPD type: emphysema Emphysema type: unspecified Qualified Code(s): J43.9 - Emphysema, unspecified
[2024-04-16] MEDS: HYDROmorphone INJ 0.5 MG/0.5 ML SYR IV PRN (15:49)
[2024-04-16] MEDS: buPROPion SR 150 MG TABCR PO SCH (21:03)
[2024-04-16] MEDS: LORazepam 0.5 MG TAB PO PRN (21:03)
[2024-04-16] MEDS: DOCUSATE SODIUM/SENNA 50/8.6MG TAB PO SCH (21:03)
[2024-04-16] MEDS: HYDROmorphone INJ 1 MG/ML SYRINGE IV PRN (21:04)
[2024-04-16] MEDS: hydrOXYzine HCl 25 MG TAB PO SCH (21:04)
[2024-04-17] MEDS: SODIUM CHLORIDE 0.9% 500 ML IV ONE (00:10)
[2024-04-17] MEDS: hydrOXYzine HCl 25 MG TAB PO PRN (01:02)
[2024-04-17] MEDS: POLYETHYLENE (MIRALAX) 17 GM PACK ONE (05:00)
[2024-04-17] MEDS: POLYETHYLENE (MIRALAX) 17 GM PACK PO SCH (05:02)
--- NOTE | 2024-04-17 07:33 | Hospitalist Progress Note ---
Date of Service April 17, 2024 Assessment & Plan (1) Two-level lumbosacral spondylosis with radiculopathy: (2) S/P lumbar spine operation: (3) Anxiety: (4) Post traumatic stress disorder: (5) Chronic obstructive pulmonary disease: Plan Anastasia Andujar is a 68y/o M with PMHx significant for chronic low back pain, GERD, peptic ulcer disease, hiatal hernia, COPD/emphysema, former tobacco use, PTSD and anxiety whom our service is consulted on for routine postoperative medical management after undergoing elective L2-L3 decompression and fusion connector previous hardware with Dr. Diamond on 04/16/24 for treatment of two-level lumbosacral spondylosis with radiculopathy. S/P Lumbar decompression and fusion POD #[address] Diamond EBL 100mL & Pre-Op Hgb: 16.3 03/27/24 pain/wound management per ortho activity and therapy as prescribed by ortho encourage incentive spirometry pt having post op urinary retention, required straight cath last night, 600ml continue to monitor BS q6h and PVR, will need to consider charles cath if persistent #Post operative hypotension SBP 90s/50s overnight and this morning received IVF, lab work still pending continue to encourage oral hydration, minimal intake will place on gentle IVF x 2 bags #COPD no acute exacerbation Follows pulm at [facility] Per initial consultation pt reports daily albuterol use would benefit from ICS, recommend follow up with outpt pulm #PTSD mood stable, continue home meds of bupropion, hydroxyzine, zoloft DVT ppx: SCDS per primary Dispo: per primary FULL CODE PCP: Cheryl Meier I spent a total of 46minutes coordinating, documenting and providing care for this patient excluding time spent in the performance of separately billed services or time spent by another provider/QHP. Thank you for this consultation. We will follow the patient with you during their hospital stay. You can reach a member of the [facility] Hospitalist Team 06/09 via hospitalist role on tiger text. Pt was seen and examined in collaboration with Dr. Burden, please see addendum Admission and Anticipated Discharge Date Admission Date: April 16, 2024 Subjective Pt sitting up in bed. He has low back pain. Denies radicular sx. Denies f/c/s, dizziness, lightheaded, chest pain, sob, n/v. His appetite is good. He reports having to be straight cathed last night due to inability to urinate. Review of Systems Review of Systems: All systems reviewed & are unremarkable except as noted in HPI & below Physical Exam Physical Exam: Gen: WD/WN, NAD, A&O x3 HEENT: Normocephalic, atraumatic, conjunctivae moist, sclerae anicteric, mucous membranes moist. Lung: Clear to Auscultation bilaterally, no wheezes/rales/rhonchi Heart: Regular rate, regular rhythm, no murmurs, rubs, or gallops Abdomen: Soft, NT, ND +BS x 4 Extremities: No edema +JESSICA drain with serosang drainage Skin: Warm, no rash, negative turgor. Results & Data Results & Data Vital Signs (Past 12 Hours) Vital Signs Temp Pulse Resp BP BP Pulse Ox O2 Del Method 04/17/24 07:17 36.7 C 73 16 94/54 L 97 Room Air 04/17/24 03:02 36.8 C 76 16 102/61 94 Nasal Cannula 04/16/24 23:20 93 Nasal Cannula 04/16/24 23:19 37.1 C 78 16 91/45 L 90/49 L 89 L Room Air 04/16/24 21:00 Room Air O2 Flow Rate 04/17/24 07:17 04/17/24 03:02 2 04/16/24 23:20 2 04/16/24 23:19 04/16/24 21:00 Medications Administered Current Inpatient Medications Acetaminophen (Acetaminophen 500 Mg Tab) 1,000 mg PO Q8H PRN PRN Reason: MILD Pain Scale 1,2,3 & Pre PT Stop: 05/16/24 11:34 Al Hydrox/Mg Hydrox/Simethicone (Aluminum/Magnesium Susp 30 Ml Udc) 30 ml PO Q6H PRN PRN Reason: Dyspepsia Stop: 05/16/24 11:34 Albuterol (Albuterol Hfa 8 Gm Inhaler) 2 puffs INH Q6H PRN PRN Reason: Wheezing Stop: 05/16/24 11:34 Bisacodyl (Bisacodyl 10 Mg Supp) 10 mg NM DAILY PRN PRN Reason: Constipation Stop: 05/16/24 11:34 Bupropion HCl (Bupropion Sr 150 Mg Tabcr) 150 mg PO BID [facility] Stop: 05/16/24 20:59 Last Admin: 04/17/24 07:45 Dose: 150 mg Diphenhydramine HCl (Diphenhydramine Capsule 25 Mg Cap) 25 mg PO Q6H PRN PRN Reason: Allergic Rhinitis/Insomnia Stop: 05/16/24 11:34 Famotidine (Famotidine 20 Mg Tab) 20 mg PO Q12H PRN PRN Reason: Dyspepsia Stop: 05/16/24 11:34 Fluticasone Furoate (Fluticasone Furoate 100mcg 14 Puffs/Inhaler) 1 puffs INH DAILY [facility] Stop: 05/17/24 08:59 Last Admin: 04/17/24 07:43 Dose: 1 puffs Hydromorphone HCl (Hydromorphone Inj 0.5 Mg/0.5 Ml Syr) 0.5 mg IV Q3H PRN PRN Reason: MODERATE Pain (Scale 4,5,6) & Pre PT Stop: 04/30/24 11:34 Last Admin: 04/16/24 15:49 Dose: 0.5 mg Hydromorphone HCl (Hydromorphone Inj 1 Mg/Ml Syringe) 1 mg IV Q3H PRN PRN Reason: SEVERE Pain (Scale 7,8,9,10) Stop: 04/30/24 11:34 Last Admin: 04/17/24 04:58 Dose: 1 mg Hydroxyzine HCl (Hydroxyzine Hcl 25 Mg Tab) 50 mg PO BID [facility] Stop: 05/16/24 20:59 Last Admin: 04/17/24 07:46 Dose: 50 mg Hydroxyzine HCl (Hydroxyzine Hcl 25 Mg Tab) 25 mg PO Q8H PRN PRN Reason: Anxiety Stop: 05/16/24 11:34 Last Admin: 04/17/24 01:02 Dose: 25 mg Acetaminophen (Ofirmev) 1,000 mg in 100 mls @ 400 mls/hr IV Q8H PRN PRN Reason: Pain Rating 1-3 & Pre PT Stop: 04/17/24 11:35 Promethazine HCl (Phenergan) 12.5 mg in 50.5 mls @ 202 mls/hr IV Q6H PRN PRN Reason: Nausea And Vomiting Stop: 05/16/24 11:34 Dexamethasone 6 mg/ Syringe 1.5 mls @ 1 mls/min IV DAILY [facility] Stop: 04/19/24 09:02 Last Admin: 04/17/24 07:42 Dose: 1 mls/min Influenza Virus Vaccine Quadrival (Do Not Administer Flu Vaccine) 1 each N/A PRN PRN PRN Reason: Notification Stop: 05/16/24 11:34 Lorazepam (Lorazepam 0.5 Mg Tab) 0.5 mg PO Q8H PRN PRN Reason: Sedation/Anxiety Stop: 05/16/24 11:34 Last Admin: 04/16/24 21:03 Dose: 0.5 mg Lorazepam (Lorazepam 2 Mg/1 Ml Vial) 0.5 mg IV Q8H PRN PRN Reason: Sedation/Anxiety Stop: 05/16/24 11:34 Magnesium Hydroxide (Magnesium Hydroxide Susp 30 Ml Udc) 30 ml PO Q24H PRN PRN Reason: Constipation Stop: 05/16/24 11:34 Metoclopramide HCl (Metoclopramide Hcl Inj 5 Mg/Ml 2 Ml Vial) 10 mg IV Q6H PRN PRN Reason: Nausea &/or Vomiting Stop: 05/16/24 11:34 Naloxone HCl (Naloxone Hcl 0.4 Mg/1 Ml Vial/Carp) 0.1 mg IV Q5M PRN PRN Reason: Oversedation/Resp depression Stop: 05/16/24 11:34 Ondansetron HCl (Ondansetron Inj 2 Mg/Ml 2 Ml Vial) 4 mg IV Q6H PRN PRN Reason: Nausea &/or Vomiting Stop: 05/16/24 11:34 Ondansetron HCl (Ondansetron 4 Mg Od Tab) 4 mg PO Q6H PRN PRN Reason: Nausea Stop: 05/16/24 11:34 Oxycodone HCl (Oxycodone Hcl Ir 5 Mg Tab (Immediate Release)) 5 - 10 mg PO Q4H PRN PRN Reason: Pain & Pre PT Stop: 04/30/24 11:34 Last Admin: 04/17/24 07:42 Dose: 10 mg Pneumococcal Polyvalent Vaccine (Do Not Administer Pneumococcal Vaccine) 1 each N/A PRN PRN PRN Reason: Notification Stop: 05/16/24 11:34 Polyethylene Glycol (Polyethylene (Miralax) 17 Gm Pack) 17 gm PO Q6 [facility] Stop: 05/17/24 05:59 Last Admin: 04/17/24 05:02 Dose: 17 gm Senna/Docusate Sodium (Docusate Sodium/Senna 50/8.6mg Tab) 2 tab PO HS [facility] Stop: 05/16/24 20:59 Last Admin: 04/16/24 21:03 Dose: 2 tab Sertraline HCl (Sertraline Hcl 100 Mg Tablet) 100 mg PO QAM [facility] Stop: 05/17/24 08:59 Last Admin: 04/17/24 07:44 Dose: 100 mg Sertraline HCl (Sertraline Hcl 50 Mg Tablet) 25 mg PO QAM [facility] Stop: 05/17/24 08:59 Last Admin: 04/17/24 07:44 Dose: 25 mg Sodium Biphosphate/Sodium Phosphate (Sod Phosphate/Sod Biphosphate Enema 132 Ml Btl) 132 ml NM ONE PRN PRN Reason: Constipation Stop: 05/16/24 11:34 Tramadol HCl (Tramadol Hcl 50 Mg Tablet) 50 - 100 mg PO Q4H PRN PRN Reason: Moderate-Severe pain & Pre PT Stop: 05/16/24 11:34 Umeclidinium/Vilanterol (Umeclidinium/Vilanterol 62.5/25mcg 7 Puffs/Inhaler) 1 puffs INH DAILY [facility] Stop: 05/17/24 08:59 Last Admin: 04/17/24 07:43 Dose: 1 puffs (5) Chronic obstructive pulmonary disease COPD type: emphysema Emphysema type: unspecified Qualified Code(s): J43.9 - Emphysema, unspecified
[2024-04-17] MEDS: dexAMETHasone 6 MG in SYRINGE 0 ML IV SCH (07:42)
[2024-04-17] MEDS: FLUTICASONE FUROATE 100MCG 14 PUFFS/INHALER INH SCH (07:43)
[2024-04-17] MEDS: UMECLIDINIUM/VILANTEROL 62.5/25MCG 7 PUFFS/INHALER INH SCH (07:43)
[2024-04-17] MEDS: SERTRALINE HCL 50 MG TABLET PO SCH (07:44)
[2024-04-17] MEDS: SERTRALINE HCL 100 MG TABLET PO SCH (07:44)
[2024-04-17] MEDS ORDERED: FLUTICASONE FUROATE 100MCG 14 PUFFS/INHALER INH SCH (09:00)
--- NOTE | 2024-04-17 09:35 | Orthopedic Progress Note ---
Date of Service April 17, 2024 Assessment & Plan (1) Two-level lumbosacral spondylosis with radiculopathy: Plan: At this time initiate physical therapy monitor his JESSICA operatively discharge home in the next few days. Admission and Anticipated Discharge Date Admission Date: April 16, 2024 Subjective Back pain controlled leg symptoms improved. Has been up and ambulating in the room. Physical Exam Physical Exam: Patient is currently in bed. Is constricted testing. Appears comfortable. Results & Data Vital Signs (Past 12 Hours) Vital Signs Temp Pulse Resp BP BP Pulse Ox O2 Del Method 04/17/24 07:17 36.7 C 73 16 94/54 L 97 Room Air 04/17/24 03:02 36.8 C 76 16 102/61 94 Nasal Cannula 04/16/24 23:20 93 Nasal Cannula 04/16/24 23:19 37.1 C 78 16 91/45 L 90/49 L 89 L Room Air O2 Flow Rate 04/17/24 07:17 04/17/24 03:02 2 04/16/24 23:20 2 04/16/24 23:19
[2024-04-17 10:38] LABS: Basophils # (auto) 0.02 K/uL (0.00-0.20); Basophils % (auto) 0.1 %; Eosinophils # (auto) 0.04 K/uL (0.00-0.50); Eosinophils % (auto) 0.3 %; Hematocrit (blood only) 41.1 % (42.0-52.0); Hemoglobin 13.1 g/dl (14.0-18.0); Immature Granulocytes # (auto) 0.09 K/uL (0.01-0.20); Immature Granulocytes % (auto) 0.6 %; Lymphocytes # (auto) 0.64 K/uL (1.20-3.40); Lymphocytes % (auto) 4.3 %; Mean Corpuscular Hemoglobin 27.3 pg (25.0-34.0); Mean Corpuscular Hgb Conc 31.9 g/dL (32.0-36.0); Mean Corpuscular Volume 85.6 fL (80.0-100.0); Mean Platelet Volume 9.8 fL (9.4-12.4); Monocytes % (auto) 5.4 %; Neutrophils # (auto) 13.19 K/uL (1.40-6.50); Neutrophils % (auto) 89.3 %; Platelet Count 284 K/uL (130-400); RDW Coefficient of Variation 14.5 % (11.5-14.5); RDW Standard Deviation 45.8 fL (36.4-46.3); White Blood Count 14.78 K/ul (4.8-10.8)
[2024-04-17 10:49] LABS: BUN Creatinine Ratio 12.4 (10-20); Creatinine Clr Calc Pharmacy 53.3 ml/min; Magnesium 1.8 mg/dl (1.7-2.4); Potassium 4.2 mmol/L (3.5-5.1)
[2024-04-17] MEDS: SODIUM CHLORIDE 0.9% 1,000 ML IV SCH (13:18)
[2024-04-18 07:37] VITALS: BP 136/75; PULSE 77; RESP 16; TEMP 98.1; O2SAT 94
[2024-04-18 08:00] LABS: Hematocrit (blood only) 37.4 % (42.0-52.0); Hemoglobin 12.4 g/dl (14.0-18.0); Mean Corpuscular Hemoglobin 27.9 pg (25.0-34.0); Mean Corpuscular Hgb Conc 33.2 g/dL (32.0-36.0); Mean Corpuscular Volume 84.2 fL (80.0-100.0); Mean Platelet Volume 9.8 fL (9.4-12.4); Platelet Count 231 K/uL (130-400); RDW Coefficient of Variation 14.4 % (11.5-14.5); RDW Standard Deviation 44.3 fL (36.4-46.3); Red Blood Count 4.44 M/uL (4.70-6.10); White Blood Count 11.72 K/ul (4.8-10.8)
[2024-04-18 08:17] LABS: BUN Creatinine Ratio 15.4 (10-20); Calcium 8.3 mg/dl (8.6-10.3); Creatinine Clr Calc Pharmacy 80.3 ml/min; Potassium 3.6 mmol/L (3.5-5.1)
--- NOTE | 2024-04-18 11:47 | Hospitalist Progress Note ---
Date of Service April 18, 2024 Assessment & Plan (1) Two-level lumbosacral spondylosis with radiculopathy: (2) S/P lumbar spine operation: (3) Anxiety: (4) Post traumatic stress disorder: (5) Chronic obstructive pulmonary disease: Plan Anastasia Andujar is a 68y/o M with PMHx significant for chronic low back pain, GERD, peptic ulcer disease, hiatal hernia, COPD/emphysema, former tobacco use, PTSD and anxiety whom our service is consulted on for routine postoperative medical management after undergoing elective L2-L3 decompression and fusion connector previous hardware with Dr. Diamond on 04/16/24 for treatment of two-level lumbosacral spondylosis with radiculopathy. #S/P Lumbar decompression and fusion POD #[address] Diamond EBL 100mL & Pre-Op Hgb: 16.3 03/27/24 pain/wound management per ortho activity and therapy as prescribed by ortho encourage incentive spirometry post op urinary retention has resolved #Post operative hypotension SBP 90s/50s overnight and this morning received IVF and resolved #COPD no acute exacerbation Follows pulm at [facility] Per initial consultation pt reports daily albuterol use would benefit from ICS, recommend follow up with outpt pulm #PTSD mood stable, continue home meds of bupropion, hydroxyzine, zoloft DVT ppx: SCDS per primary Dispo: likely discharge tomorrow FULL CODE PCP: Cheryl Meier I spent a total of 43 minutes coordinating, documenting and providing care for this patient excluding time spent in the performance of separately billed services or time spent by another provider/QHP. Thank you for this consultation. We will follow the patient with you during their hospital stay. You can reach a member of the [facility] Hospitalist Team 06/09 via hospitalist role on tiger text. Pt was seen and examined in collaboration with Dr. Maza, please see addendum Admission and Anticipated Discharge Date Admission Date: April 16, 2024 Supervising Physician Co-Signing Physician Notes Patient is seen and examined at bedside on day of discharge. Back pain at surgical site is well-controlled. Denies any chest pain, dyspnea, nausea, vomiting, abdominal pain. On exam patient is obese, no apparent distress, normocephalic atraumatic, EOMI, normal breath sounds, clear to auscultation, S1- S2, no murmur, no pedal edema, abdomen soft, nontender,back-surgical site in dressing, drain, alert, awake, oriented, grossly no focal deficits. Patient is consulted for postop medical management. Patient had lumbar decompression, fusion surgery. Postop hypotension improved with IV fluids. Advised to follow- up with PCP on discharge. I personally interviewed and examined the patient at bedside. I have reviewed the advanced practitioner's documentation on the date of service referred in note and agree with plan. Patient's care is coordinated with Minda Connell PA-C. Please refer to the documentation above for details of patient's presentation and for discussion of other issues. I spent a total [id number] coordinating, documenting, and providing care for this patient excluding time spent in the performance of separately billed services or time spent by another provider/QHP. Subjective Pt seen in room 383-1. He is no longer having difficulty urinating. He is able to urinate on his own w/o difficulty. He continues to have some incisional tenderness. Denies f/c/s, chest pain, sob, n/v. He is passing gas but no BM yet. Review of Systems Review of Systems: All systems reviewed & are unremarkable except as noted in HPI & below Physical Exam Physical Exam: Gen: WD/WN, NAD, A&O x3 HEENT: Normocephalic, atraumatic, conjunctivae moist, sclerae anicteric, mucous membranes moist. Lung: Clear to Auscultation bilaterally, no wheezes/rales/rhonchi Heart: Regular rate, regular rhythm, no murmurs, rubs, or gallops Abdomen: Soft, NT, ND +BS x 4 Extremities: No edema +JESSICA drain with serosang drainage Skin: Warm, no rash, negative turgor. Results & Data Results & Data Vital Signs (Past 12 Hours) Vital Signs Temp Pulse Resp BP Pulse Ox O2 Del Method 04/18/24 07:36 36.7 C 77 16 136/75 94 Room Air Laboratory Results Short CBC 04/18/24 Range/Units 07:40 WBC 11.72 H (4.8-10.8) K/ul Hgb 12.4 L (14.0-18.0) g/dl Hct 37.4 L (42.0-52.0) % Plt Count 231 (130-400) K/uL BMP 04/18/24 07:40 Sodium 142 Potassium 3.6 Chloride 109 H Carbon Dioxide 29 BUN 14 Creatinine 0.91 D Glucose 81 Calcium 8.3 L I have independently reviewed and interpreted patient's cbc, bmp Medications Administered Current Inpatient Medications Acetaminophen (Acetaminophen 500 Mg Tab) 1,000 mg PO Q8H PRN PRN Reason: MILD Pain Scale 1,2,3 & Pre PT Stop: 05/16/24 11:34 Al Hydrox/Mg Hydrox/Simethicone (Aluminum/Magnesium Susp 30 Ml Udc) 30 ml PO Q6H PRN PRN Reason: Dyspepsia Stop: 05/16/24 11:34 Albuterol (Albuterol Hfa 8 Gm Inhaler) 2 puffs INH Q6H PRN PRN Reason: Wheezing Stop: 05/16/24 11:34 Bisacodyl (Bisacodyl 10 Mg Supp) 10 mg WI DAILY PRN PRN Reason: Constipation Stop: 05/16/24 11:34 Bupropion HCl (Bupropion Sr 150 Mg Tabcr) 150 mg PO BID [facility] Stop: 05/16/24 20:59 Last Admin: 04/18/24 09:43 Dose: 150 mg Diphenhydramine HCl (Diphenhydramine Capsule 25 Mg Cap) 25 mg PO Q6H PRN PRN Reason: Allergic Rhinitis/Insomnia Stop: 05/16/24 11:34 Famotidine (Famotidine 20 Mg Tab) 20 mg PO Q12H PRN PRN Reason: Dyspepsia Stop: 05/16/24 11:34 Fluticasone Furoate (Fluticasone Furoate 100mcg 14 Puffs/Inhaler) 1 puffs INH DAILY [facility] Stop: 05/17/24 08:59 Last Admin: 04/18/24 09:44 Dose: 1 puffs Hydromorphone HCl (Hydromorphone Inj 0.5 Mg/0.5 Ml Syr) 0.5 mg IV Q3H PRN PRN Reason: MODERATE Pain (Scale 4,5,6) & Pre PT Stop: 04/30/24 11:34 Last Admin: 04/16/24 15:49 Dose: 0.5 mg Hydromorphone HCl (Hydromorphone Inj 1 Mg/Ml Syringe) 1 mg IV Q3H PRN PRN Reason: SEVERE Pain (Scale 7,8,9,10) Stop: 04/30/24 11:34 Last Admin: 04/17/24 04:58 Dose: 1 mg Hydroxyzine HCl (Hydroxyzine Hcl 25 Mg Tab) 50 mg PO BID [facility] Stop: 05/16/24 20:59 Last Admin: 04/18/24 09:44 Dose: 50 mg Hydroxyzine HCl (Hydroxyzine Hcl 25 Mg Tab) 25 mg PO Q8H PRN PRN Reason: Anxiety Stop: 05/16/24 11:34 Last Admin: 04/17/24 01:02 Dose: 25 mg Promethazine HCl (Phenergan) 12.5 mg in 50.5 mls @ 202 mls/hr IV Q6H PRN PRN Reason: Nausea And Vomiting Stop: 05/16/24 11:34 Dexamethasone 6 mg/ Syringe 1.5 mls @ 1 mls/min IV DAILY [facility] Stop: 04/19/24 09:02 Last Admin: 04/18/24 09:43 Dose: 1 mls/min Influenza Virus Vaccine Quadrival (Do Not Administer Flu Vaccine) 1 each N/A PRN PRN PRN Reason: Notification Stop: 05/16/24 11:34 Lorazepam (Lorazepam 0.5 Mg Tab) 0.5 mg PO Q8H PRN PRN Reason: Sedation/Anxiety Stop: 05/16/24 11:34 Last Admin: 04/17/24 12:02 Dose: 0.5 mg Lorazepam (Lorazepam 2 Mg/1 Ml Vial) 0.5 mg IV Q8H PRN PRN Reason: Sedation/Anxiety Stop: 05/16/24 11:34 Magnesium Hydroxide (Magnesium Hydroxide Susp 30 Ml Udc) 30 ml PO Q24H PRN PRN Reason: Constipation Stop: 05/16/24 11:34 Metoclopramide HCl (Metoclopramide Hcl Inj 5 Mg/Ml 2 Ml Vial) 10 mg IV Q6H PRN PRN Reason: Nausea &/or Vomiting Stop: 05/16/24 11:34 Naloxone HCl (Naloxone Hcl 0.4 Mg/1 Ml Vial/Carp) 0.1 mg IV Q5M PRN PRN Reason: Oversedation/Resp depression Stop: 05/16/24 11:34 Ondansetron HCl (Ondansetron Inj 2 Mg/Ml 2 Ml Vial) 4 mg IV Q6H PRN PRN Reason: Nausea &/or Vomiting Stop: 05/16/24 11:34 Ondansetron HCl (Ondansetron 4 Mg Od Tab) 4 mg PO Q6H PRN PRN Reason: Nausea Stop: 05/16/24 11:34 Oxycodone HCl (Oxycodone Hcl Ir 5 Mg Tab (Immediate Release)) 5 - 10 mg PO Q4H PRN PRN Reason: Pain & Pre PT Stop: 04/30/24 11:34 Last Admin: 04/18/24 02:50 Dose: 10 mg Pneumococcal Polyvalent Vaccine (Do Not Administer Pneumococcal Vaccine) 1 each N/A PRN PRN PRN Reason: Notification Stop: 05/16/24 11:34 Polyethylene Glycol (Polyethylene (Miralax) 17 Gm Pack) 17 gm PO Q6 [facility] Stop: 05/17/24 05:59 Last Admin: 04/18/24 05:27 Dose: 17 gm Senna/Docusate Sodium (Docusate Sodium/Senna 50/8.6mg Tab) 2 tab PO HS [facility] Stop: 05/16/24 20:59 Last Admin: 04/17/24 19:38 Dose: Not Given Sertraline HCl (Sertraline Hcl 100 Mg Tablet) 100 mg PO QAM [facility] Stop: 05/17/24 08:59 Last Admin: 04/18/24 09:44 Dose: 100 mg Sertraline HCl (Sertraline Hcl 50 Mg Tablet) 25 mg PO QAM [facility] Stop: 05/17/24 08:59 Last Admin: 04/18/24 09:45 Dose: 25 mg Sodium Biphosphate/Sodium Phosphate (Sod Phosphate/Sod Biphosphate Enema 132 Ml Btl) 132 ml [place] ONE PRN PRN Reason: Constipation Stop: 05/16/24 11:34 Tramadol HCl (Tramadol Hcl 50 Mg Tablet) 50 - 100 mg PO Q4H PRN PRN Reason: Moderate-Severe pain & Pre PT Stop: 05/16/24 11:34 Umeclidinium/Vilanterol (Umeclidinium/Vilanterol 62.5/25mcg 7 Puffs/Inhaler) 1 puffs INH DAILY [facility] Stop: 05/17/24 08:59 Last Admin: 04/18/24 09:45 Dose: 1 puffs (5) Chronic obstructive pulmonary disease COPD type: emphysema Emphysema type: unspecified Qualified Code(s): J43.9 - Emphysema, unspecified
--- NOTE | 2024-04-18 12:14 | Discharge Summary ---
Date of Service April 18, 2024 Admission HPI Per Admitting Provider This is a 68-year-old male presents chronic persistent back and leg pain and failing course of nonoperative care is here for surgical invention. Principal Diagnosis Lumbar spondylosis with radiculopathy Discharge Data Allergies Allergy/AdvReac Type Severity Reaction Status Date / Time gabapentin Allergy Unknown Rash Verified 04/16/24 06:59 latex Allergy Unknown Itchy Verified 04/16/24 06:59 hands (with gloves) paroxetine Allergy Unknown Rash Verified 04/16/24 06:59 Consultations 04/16/24 11:35 Consult Hospitalist Routine Procedures Performed Operation Date: 04/16/24 07:45 Actual Procedures p L2-L3 Decompression and Fusion, Connect to Previous Hardware, Spinal Cord Monitoring(Not Applicable) - Chente Diamond DO Ordered Studies 04/16/24 09:45 [place] lumbar spine 2-3V Routine Hospital Course (1) Two-level lumbosacral spondylosis with radiculopathy: Patient went lumbar decompression fusion trial as well as taken orthopedic for postoperative. Postop he progressed appropriately. JESSICA drain decreasing. Good strength testing. Pain well-controlled. Subsidy discharged home. Discharge orders instructions from the chart for further review. Total Time Total Time Spent Total Time Spent (In Minutes): 20 minutes Discharge Plan Discharge Items Patient Disposition: Home - Self-Care Reason For Visit: Other Spondylosis with Radiculopathy Lumbar Region Discharge Diagnosis: Lumbar spondylosis with radiculopathy Activity: As commented below Non-emergency contact: Primary Care Provider Call non-emergency contact if: you have any medication questions Follow-up/Referrals: Cheryl Meier DO [Primary Care Provider] - Diet: Regular Addtl Attending Provider Instructions: ACTIVITY RECOMMENDATIONS: SELF CARE INSTRUCTIONS AFTER THORACIC/LUMBAR FUSIONS 1. You may walk to your tolerance. It is good exercise for your legs and back. Expect some back and intermittent leg aches and pains. 2. You may perform "counter-top" level activities (make a sandwich, afua with a project, etc.). 3. No bending or lifting of more than 10 pounds or back twisting of any nature (roll like a log when turning in bed). 4. You may ride in a car for 20-30 minutes at a time. No driving until after your first visit with your doctor. 5. Frequent changes of position and restricting sitting to 30 minutes at a time will help limit the amount of back spasms and stiffness you may experience. 6. You may discontinue the use of ambulatory aids (cane, crutches, etc.) once your strength and confidence allow. 7. You may weight training instructor the shower and let water strike your incision when you arrive home at least once daily. Do not take a tub bath, sit in a hot tub or go into a swimming pool until after your first recheck in the office. 8. You may resume previous diet. SPECIAL CARE INSTRUCTIONS: VERY IMPORTANT TO READ AND REVIEW A. Your surgical incision has been closed with a cosmetic suture under the skin that will dissolve in about 6 weeks. In 14 days, you can use a pair of clean scissors and cut the suture that is left outside of the skin at the ends of your incision. 1. The small skin tapes can be removed 7 days after surgery if they have not fallen off by that point. 2. You may keep the wound open to air as much as possible to promote healing after post-op day number 5 unless told otherwise by your doctor. 3. If you think the wound looks like it is becoming infected (redness or worsening drainage) and/or you are experiencing fever, chill or worsening back pain and muscle spasms, contact the office so that we may evaluate you as soon as possible. B. Complications are uncommon, but please contact us if you have any signs or symptoms of: 1. wound infection (fever higher than 102.5 degrees F, redness, separation of wound, drainage, or increasing pain from the incision) 2. blood clots in legs (pain, swelling, redness and warmth in legs) 3. urinary tract infection (fever higher than 102.5 degrees F, burning upon urination or increased frequency of urination) 4. nerve problems (inability to walk on your toes or heels, numbness, loss of bowel or bladder control) 5. any other symptoms that concern you C. Please call the office at if you have any concerns or questions about your operation or recovery. D. No smoking! Smoking drastically decreases the chance of a solid fusion. E. Do not take any anti-inflammatory medications (Indocin, Advil, Motrin, Aspirin, Naprosyn, etc.) as these may inhibit the chance of a solid fusion. Tylenol is okay to take for pain. MANAGING PAIN AFTER SPINAL SURGERY 1. Narcotic medication is intended for short-term use and will be provided for surgical pain. Surgical pain usually lasts for a period of 4-6 weeks. Narcotic medication includes Percocet, Vicodin, Darvocet, Tylenol #3 or Lortab. 2. Longer-term pain is more appropriately treated with non-narcotic medication such as Tylenol ES. 3. Muscle spasm is not appropriately treated with narcotics. Muscle relaxers such as Soma, Flexeril or Skelaxin can be used along with Tylenol ES. 4. Remember that we all live with some "aches and pains". This is not unusual or uncommon after an injury or as we get older. a. Back pain is expected and may include muscle spasms for 4 to 6 weeks after surgery. The pain should gradually improve. If the pain worsens for no apparent reason, please contact the office. b. Intermittent leg pain may also be experienced and should not be concerned about unless it worsens for no apparent reason. If so, please contact the office. 5. We will provide appropriate medication within the normal guidelines of their prescribed use. We will also be very cautious and aware of potential abuse and extended duration of patients' medication needs. a. Pain medications are for your comfort and to assist with sleep and rest so that the tissue can heal. They are not provided in order to return to normal activity and should not be used through the day. To do so or worsening pain at night can result from ongoing tissue damage and developm ent of tolerance to the prescribed medicine. 6. Please allow 2-3 days to process refills. Prescriptions will not be mailed but must be picked up at the office. FOLLOW UP VISIT: Keep your scheduled follow-up appointment. Any questions, please call the office at . Pending Studies at Discharge: No Stand-Alone Forms: My [employer], Smoking Cessation Medications and DC Order Prescriptions: New tramadol 50 mg tablet 50 mg PO Q6H PRN (Reason: pain, moderate) Qty: 30 0RF oxycodone 5 mg tablet 5 mg PO Q6H PRN (Reason: pain) Qty: 30 0RF Continued sertraline 100 mg Tablet 125 mg PO QAM bupropion HCl 150 mg Tablet Sustained-Release 12 Hr 150 mg PO BID hydroxyzine HCl 50 mg Tablet 50 mg PO BID lorazepam [Ativan] 0.5 mg Tablet 0.5 mg PO HS PRN (Reason: Sleep) albuterol sulfate 90 mcg/actuation Hfa Aerosol Inhaler 2 puff INHALATION Q6H PRN (Reason: Wheezing) Discharge Orders: Discharge Order (Routine); Ordered 04/18/24 Ordered By: Chente Diamond Admission Data Admit Date/Time: 04/16/24 09:50 Attending Provider: Chente Diamond Admit Provider: Chente Diamond Primary Care Provider: Cheryl Meier Other Providers: Antoinette Diop; Lenin Burden; Jonnie Maza
== END 2024-04-18 15:30 | disposition home or self-care (01) | DRG 402 ==
LOC: ASU 06:57 → 3N 09:50